=== PATIENT | female | born 1955 | race Caucasian/White ===

== ENCOUNTER → 2020-04-15 | Outpatient (CLI) | payer OTHER ==
[~2020-04-15] MED LIST: ASPIRIN EC325 M1 PO; DIPHENHYDRAMINE25 M4 PO; FISH OIL 1,0001 EAC5 PO; IBUPROFEN 200200 M1 PO; MULTIVITAMINS1 EAC7 PO; PREDNISONE 20 M20 MG PO; PROBIOTIC1 EAC1 PO; VAGIFEM10 MCG PO; VITAMIN D400 UNI1 PO; VITAMIN E1000 UNI3 PO; ZYRTEC10 M2 PO
== END ==
LOC: SJCVC 13:55
PROVIDERS: ATTEND Internal Medicine Cardiovascular Disease
DX: R94.31 Abnormal electrocardiogram [ECG] [EKG] (principal); I42.9 Cardiomyopathy, unspecified; I44.7 Left bundle-branch block, unspecified; E78.00 Pure hypercholesterolemia, unspecified; R00.2 Palpitations; K21.9 Gastro-esophageal reflux disease without esophagitis; Z79.899 Other long term (current) drug therapy; Z87.891 Personal history of nicotine dependence

== ENCOUNTER → 2021-04-21 | Outpatient (CLI) | payer OTHER | LOC: SJCVCIMAG 09:03 | PROVIDERS: ATTEND Internal Medicine Cardiovascular Disease | DX: R94.31 Abnormal electrocardiogram [ECG] [EKG] (principal); I35.8 Other nonrheumatic aortic valve disorders; I10 Essential (primary) hypertension; I42.9 Cardiomyopathy, unspecified; R00.2 Palpitations; I44.7 Left bundle-branch block, unspecified; E78.00 Pure hypercholesterolemia, unspecified; K21.9 Gastro-esophageal reflux disease without esophagitis; Z88.8 Allergy status to other drugs, medicaments and biological substances; Z79.899 Other long term (current) drug therapy; Z72.89 Other problems related to lifestyle; Z87.891 Personal history of nicotine dependence ==